=== PATIENT | female | born 1995 | race Caucasian/White ===

== ENCOUNTER 2019-11-28 19:58 | Emergency (ER) | payer BC ==
[~2019-11-28] VITALS: Ht 162.6 cm; Wt 63.0 kg
[2019-11-28 20:22] VITALS: BP 118/69
[2019-11-28] MEDS ORDERED: TETRACAINE HCL 0.5% OPHTALMIC 15 ML BOTTLE OP ONE (22:00)
[2019-11-28] MEDS ORDERED: HYDROCODONE/APAP 5/325MG TABLET ONE (22:24)
[2019-11-28] MEDS ORDERED: IBUPROFEN 600 MG TABLET ONE (22:25)
[2019-11-28] MEDS ORDERED: ONDANSETRON 4 MG TAB.RAPDIS ONE (22:25)
[2019-11-28] MEDS ORDERED: ONDANSETRON 4 MG TAB.RAPDIS SL ONE (22:30)
[2019-11-28] MEDS ORDERED: IBUPROFEN 600 MG TABLET PO ONE (22:30)
[2019-11-28] MEDS ORDERED: HYDROCODONE/APAP 5/325MG TABLET PO ONE (22:30)
== END 2019-11-28 22:36 | disposition home or self-care (01) ==
LOC: ER 20:02
DX: H00.016 Hordeolum externum left eye, unspecified eyelid (principal); L03.213 Periorbital cellulitis; J45.909 Unspecified asthma, uncomplicated
CPT/HCPCS: 99284; Q0162